=== PATIENT | female | born 1985 | race Caucasian/White ===

== ENCOUNTER 2018-10-01 19:35 | Inpatient (IN) | payer OTHER ==
[2018-10-01 20:54] LABS: PLATELET COUNT 122 10^3/uL (150-400)
[2018-10-01] MEDS ORDERED: fentaNYL 100 MCG/2 ML INJ IVP ONE (21:27)
[2018-10-01] MEDS ORDERED: PHENYLEPHRINE HCL 100 MCG/ML SYR IVP PRN (21:39)
[2018-10-01] MEDS ORDERED: NALOXONE HCL 0.4 MG/ML INJ IVP PRN (21:39)
[2018-10-01] MEDS ORDERED: BUPIVACAINE 0.5% 30 ML SDV ONE (21:44)
[2018-10-01] MEDS ORDERED: PHENYLEPHRINE HCL 100 MCG/ML SYR ONE (21:44)
[2018-10-01] MEDS ORDERED: OLIVE OIL 118 ML BTL MISC PRN (22:00)
[2018-10-01] MEDS ORDERED: fentaNYL 200 MCG, BUPIVACAINE 0.5% 20 ML in NS 100 ML EP SCH (22:00)
[2018-10-01] MEDS ORDERED: LR 1,000 ML IV PRN (22:00)
[2018-10-01] MEDS ORDERED: LIDOCAINE 1% 300 MG/30 ML SDV SC PRN (22:00)
[2018-10-01] MEDS ORDERED: IBUPROFEN 600 MG TAB PO PRN (22:00)
[2018-10-01] MEDS ORDERED: EPSOM SALT 454 GM TP PRN (22:00)
[2018-10-01] MEDS ORDERED: LR 500 ML IV SCH (22:00)
[2018-10-01] MEDS ORDERED: MISOPROSTOL 200 MCG TAB PR PRN (22:00)
[2018-10-01] MEDS ORDERED: TERBUTALINE SULFATE 1 MG/ML VIAL IV PRN (22:00)
[2018-10-01] MEDS ORDERED: OXYTOCIN/RINGERS LACTATE 1,000 ML IV PRN (22:00)
[2018-10-01] MEDS ORDERED: fentaNYL 2MCG/ML/BUP 0.1% RTU 100 ML EP SCH (22:00)
[2018-10-01] MEDS ORDERED: LIDOCAINE 1% 300 MG/30 ML SDV ONE (22:16)
[2018-10-01] MEDS ORDERED: OLIVE OIL 118 ML BTL ONE (22:16)
[2018-10-01] MEDS ORDERED: TERBUTALINE SULFATE 1 MG/ML VIAL ONE (22:17)
[2018-10-01] MEDS ORDERED: OXYTOCIN 10 UNIT/ML VIAL ONE (22:17)
[2018-10-01] MEDS ORDERED: AMMONIA AROMATIC 1 EACH AMP IH ONE (22:17)
[2018-10-01] MEDS ORDERED: MISOPROSTOL 200 MCG TAB ONE (22:17)
--- NOTE | 2018-10-01 22:48 | PREANESOB ---
Obstetric Pre-Anesthesia Info - General Info Proposed Procedure: NEIDA : 2 Para: 1 ROXANA: 10/17/18 Gestational Age: 37 week(s) and 5 day(s) - Info Status: Full Term FHR Pattern: Reassuring - Labor Status Cervical Dilation per last OB SVE: 3 Indications for Labor Analgesia: Pain Control Labor Epidural: Proposed Anesthesia Allergies/Adverse Reactions: Allergy/AdvReac Type Severity Reaction Status Date / Time No Known Allergies Allergy Unverified 10/01/18 20:45 Visit Medications: Generic Name Dose Route Start Last Admin Trade Name Freq PRN Reason Stop Dose Admin Lactated Ringer's 500 mls @ 0 mls/hr 10/01/18 22:00 Lr IV 03/30/19 21:59 CONT ROSA ISELA As Directed Fentanyl 200 mcg/ Bupivacaine 100 mls @ 0 mls/hr 10/01/18 22:00 HCl 20 ml/ Sodium Chloride EP 10/11/18 21:59 CONT ROSA ISELA Protocol As Directed Lactated Ringer's 1,000 mls @ 0 mls/hr 10/01/18 22:00 Lr IV 10/02/18 21:59 PRN PRN SEE PROTOCOL CONDITIONS Protocol Per Protocol Oxytocin/Lactated Ringer's 1,000 mls @ 125 mls/hr 10/01/18 22:00 Pitocin 20 Units/Lr (Premix) IV PRN PRN Post bleeding Ibuprofen 600 mg 10/01/18 22:00 Motrin PO ONCE PRN post , pain Lidocaine HCl 300 mg 10/01/18 22:00 Lidocaine Hcl 1% SC 03/30/19 21:59 ONCE PRN episiotomy Magnesium Sulfate 454 gm 10/01/18 22:00 Epsom Salt TP 03/30/19 21:59 Q1H PRN perineal discomfort Misoprostol 800 - 1,000 mcg 10/01/18 22:00 Cytotec NC ONCE PRN Vaginal Atony/Bleeding Naloxone HCl 0.4 mg 10/01/18 21:39 Narcan IVP 03/30/19 21:38 PRN PRN Respiratory depression [place] Oil 118 ml 10/01/18 22:00 Sweet Oil MISC 03/30/19 21:59 ONCE PRN perineal massage Phenylephrine HCl 100 mcg 10/01/18 21:39 Neosynephrine IVP 03/30/19 21:38 .Q2M PRN Hypotension Terbutaline Sulfate 0.25 mg 10/01/18 22:00 Brethine IV 03/30/19 21:59 ONCE PRN Tachysystole Discontinued Medications Generic Name Dose Route Start Last Admin Trade Name Daisy PRN Reason Stop Dose Admin Ammonia (Aromatic Spirit) Confirm 10/01/18 22:17 Ammonia Aromatic Administered 10/01/18 22:18 Dose 1 each IH .STK-MED ONE Bupivacaine HCl Confirm 10/01/18 21:44 Sensorcaine 0.5% Vial Administered 10/01/18 21:45 Dose 30 ml .ROUTE .STK-MED ONE Fentanyl 50 mcg 10/01/18 21:27 Sublimaze IVP 10/01/18 21:28 ONCE ONE Lidocaine HCl Confirm 10/01/18 22:16 Lidocaine Hcl 1% Administered 10/01/18 22:17 Dose 300 mg .ROUTE .STK-MED ONE Misoprostol Confirm 10/01/18 22:17 Cytotec Administered 10/01/18 22:18 Dose 1,000 mcg .ROUTE .STK-MED ONE [place] Oil Confirm 10/01/18 22:16 Sweet Oil Administered 10/01/18 22:17 Dose 118 ml .ROUTE .STK-MED ONE Oxytocin Confirm 10/01/18 22:17 Pitocin Administered 10/01/18 22:18 Dose 40 unit .ROUTE .STK-MED ONE Phenylephrine HCl Confirm 10/01/18 21:44 Neosynephrine Administered 10/01/18 21:45 Dose 1,000 mcg .ROUTE .STK-MED ONE Terbutaline Sulfate Confirm 10/01/18 22:17 Brethine Administered 10/01/18 22:18 Dose 1 mg .ROUTE .STK-MED ONE - Anesthesia History Response to Local Anesthetics: Normal Anesthesia & Operative History: No Prior Problems Family Anesthesia History: Negative - Social History Substance Use/Abuse: Denies - Vital Signs Height/Weight (Nursing): Height 157.48 cm Weight 81.647 kg Weight: 82 kg Height: 157.48 cm - Focused Exam Neck exam: FROM Mallampati Score: Class 1 Mouth exam: normal dental/mouth exam Pulmonary: no respiratory distress, no rales or rhonchi Cardiovascular: regular rate and rhythym, no murmur, rub, or gallop Labs: 10/01/18 20:43 10/01/18 20:43 Uric Acid 5.7 mg/dL (2.5-6.8) 10/01/18 20:43 Total Bilirubin 1.2 mg/dL (0.1-1.4) 10/01/18 20:43 Conjugated Bilirubin 0.1 mg/dL (0.0-0.5) 10/01/18 20:43 Unconjugated Bilirubin 1.1 mg/dL (0.0-1.1) 10/01/18 20:43 AST 29 IU/L (14-46) 10/01/18 20:43 ALT 29 IU/L (9-52) 10/01/18 20:43 Lactate Dehydrogenase 571 IU/L (313-618) 10/01/18 20:43 - Plan Consent Signed and on Chart: Yes Patient/Guardian Understands and Agrees to Plan: Yes Urgent/Emergent Case: Josefina stuart completed preop but documented later for safe timely pt care
--- NOTE | 2018-10-01 23:08 | PDGENHP ---
History and Physical - Chief Complaint contractions - History of Present Illness 33 at 37w5d by LMP c/w 8w2d us, presents with contractions. Ctxn started this morning and have gradually increased in intensity and frequency since this morning, became q 5 min around 1800. + bloody show. NO LOF. NO LIZAMA, no vis changes, no epigastric pain. + BLE edema. Good FM. care with [facility], c/b multiple UTIs and kidney stones. Currently on ampicillin for suppression since 28 weeks. labs all wnl, including Neg Innatal. O pos Rub Imm GBS neg multiple diff u cx pos - on amp suppression POBhx; 2005, male , , 6#15oz History Information - Allergies/Home Medication List Allergies/Adverse Reactions: No Known Allergies Allergy (Unverified 10/01/18 20:45) I have personally reviewed and updated: family history, medical history, social history, surgical history Past Medical History: frequent UTIs. nephrolithiasis - Surgical History Additional surgical history: lithotripsy - Family History Positive for: cancer (MGM breast ca), diabetes type II (1/2 bro), CAD (and colon ca at 50), stroke (MGF) - Social History Smoking Status: Never smoked Alcohol Use: None Drug Use: None Review of Systems Review of Systems: ROS: 10pt was reviewed & negative except for what was stated in HPI & below Physical Exam Physical Exam: 36.4 77 16 144/91 Labor check was done, initial BPs still elevated, but then decreased out of preeclamptic range Constitutional: no apparent distress, appears nourished Eyes: PERRL, anicteric sclera, EOMI Ears, Nose, Mouth, Throat: moist mucous membranes, hearing normal, ears appear normal Cardiovascular: regular rate and rhythym Respiratory: no respiratory distress, no rales or rhonchi, clear to auscultation Gastrointestinal: normoactive bowel sounds (fundus firm and NT when not eduar) Genitourinary: no bladder fullness, other (SVE initially 3 / 90, then changed to 3.5 / 100 ) Skin: warm, normal color Musculoskeletal: full muscle strength Neurologic: AAOx3 Psychiatric: interacting appropriately, not anxious Lab Data & Imaging Review 10/01/18 20:43 10/01/18 20:43 WBC 13.28 10^3/uL (3.80-9.50) H 12/10/18 20:43 RBC 4.00 10^6/uL (4.18-5.33) L 10/01/18 20:43 Hgb 14.0 g/dL (12.6-16.3) 10/01/18 20:43 Hct 38.7 % (38.0-47.0) 10/01/18 20:43 MCV 96.8 fL (81.5-99.8) 10/01/18 20:43 MCH 35.0 pg (27.9-34.1) H 10/01/18 20:43 MCHC 36.2 g/dL (32.4-36.7) 10/01/18 20:43 RDW 13.3 % (11.5-15.2) 10/01/18 20:43 Plt Count 122 10^3/uL (150-400) L 10/01/18 20:43 MPV 12.4 fL (8.7-11.7) H 10/01/18 20:43 Neut % (Auto) 73.8 % (39.3-74.2) 10/01/18 20:43 Lymph % (Auto) 18.2 % (15.0-45.0) 10/01/18 20:43 [place] % (Auto) 7.0 % (4.5-13.0) 10/01/18 20:43 Eos % (Auto) 0.3 % (0.6-7.6) L 10/01/18 20:43 Baso % (Auto) 0.3 % (0.3-1.7) 10/01/18 20:43 Nucleat RBC Rel Count 0.0 % (0.0-0.2) 10/01/18 20:43 Absolute Neuts (auto) 9.80 10^3/uL (1.70-6.50) H 10/01/18 20:43 Absolute Lymphs (auto) 2.42 10^3/uL (1.00-3.00) 10/01/18 20:43 Absolute Monos (auto) 0.93 10^3/uL (0.30-0.80) H 10/01/18 20:43 Absolute Eos (auto) 0.04 10^3/uL (0.03-0.40) 10/01/18 20:43 Absolute Basos (auto) 0.04 10^3/uL (0.02-0.10) 10/01/18 20:43 Absolute Nucleated RBC 0.00 10^3/uL (0-0.01) 10/01/18 20:43 Immature Gran % 0.4 % (0.0-1.1) 10/01/18 20:43 Immature Gran # 0.05 10^3/uL (0.00-0.10) 10/01/18 20:43 BUN 16 mg/dL (7-23) 10/01/18 20:43 Creatinine 0.8 mg/dL (0.6-1.0) 10/01/18 20:43 Estimated GFR > 60 10/01/18 20:43 Uric Acid 5.7 mg/dL (2.5-6.8) 10/01/18 20:43 Total Bilirubin 1.2 mg/dL (0.1-1.4) 10/01/18 20:43 Conjugated Bilirubin 0.1 mg/dL (0.0-0.5) 10/01/18 20:43 Unconjugated Bilirubin 1.1 mg/dL (0.0-1.1) 10/01/18 20:43 AST 29 IU/L (14-46) 10/01/18 20:43 ALT 29 IU/L (9-52) 10/01/18 20:43 Lactate Dehydrogenase 571 IU/L (313-618) 10/01/18 20:43 Ur Random Creatinine 25.3 mg/dL 10/01/18 20:43 U Random Total Protein 30 mg/dL (0-11) H 10/01/18 20:43 P/c= 1.18 Assessment & Plan Assessment: 33 at 37w5d in early labor Elevated BPs with elevated P/c and low plts - currently does not meet criteria for preeclampsia, but concern for it developing, but will anticipate vag delivery as is in spontaneous labor. Epidural as desired (placed). Expectant mgmt for now. Mary Abdul MD, [facility]
--- NOTE | 2018-10-02 02:33 | OBDEL ---
Info Type: Vaginal Presentation at Delivery: Vertex L&D Analgesia/Anesthesia Type: Epidural GBS+: No Intrapartum Medications: Discontinued Medications Generic Name Dose Route Start Last Admin Trade Name Daisy PRN Reason Stop Dose Admin Fentanyl 50 mcg 10/01/18 21:27 10/01/18 23:59 Sublimaze IVP 10/01/18 21:28 Not Given ONCE ONE Indications for Delivery: Spontaneous Labor Vaginal Delivery - Delivery Provider Delivery Physician/CNM: Mary Abdul - Labor and Delivery Onset of Contractions Date: 10/01/18 Onset of Contractions Time: 18:00 Onset of Contractions Type: Spontaneous Rupture of Membranes Date: 10/02/18 Rupture of Membranes Time: 01:22 Rupture of Membranes Type: Artificial Amniotic Fluid Color: Clear Dilation Complete Date: 10/02/18 Dilation Complete Time: 01:14 Placenta Delivery Date: 10/02/18 Placenta Delivery Time: 02:08 Total Hours of Labor: 8 Non-surgical Procedures: Amniotomy Laceration: 2nd Degree, Other (Specify) (bilateral periurethral and R labial) Repair: 3-0, Vicryl Vaginal Sponge Count Correct: Yes Vaginal Needle Count Correct: Yes Vaginal Sweep Performed: Yes EBL: 350 Delivery Events: None Delivery Comment: Pt arrived in early labor, and transitioned to active labor, received an epidural and progressed from 5 cm to complete dilation in about 2 hours. AROM for clear fluid was performed after she was completely dilated. Urinary catheter was discontinued. She pushed for 22 min. At 0151 delivery of vertex over intact perineum, BARRETT presentation, no nuchal cord. No signs of dystocia. Easy delivery of body, and infant delivered to maternal abdomen. Cord clamping was delayed x 1 minute then cut. Cord blood was obtained. Bilateral periurethral lacerations, right labial and small 2nd degree lacerations were identified and repaired in the standard fashion with 3.0 Vicryl. Apgars of 8 at 1 min and 9 at 5 min, female infant. Placenta then delivered spontaneously at 0208, and was examined. A succenturiate lobe was identified - appeared as if the placenta was heart shaped, but yet complete. Sponge, lap and needle counts were correct x2. Infant left with mother, both stable, with RN in attendance. - Medications Labor Augmentation/Induction Methods Used: None [place] Data ROXANA: 10/17/18 Gestational Age: 37 week(s) and 6 day(s) [place] Delivery Date: 10/02/18 Delivery Time: 01:51 ("Aixa") Sex of Infant: Female Score (1 Min): 8 Score (5 Min): 9 ICD10 Worksheet Patient Problems: Problems Problem Status Onset Spontaneous onset of labor after 37 but before 39 completed weeks gestation with delivery by planned section Acute Spontaneous onset of labor after 37 but before 39 completed weeks gestation with delivery by planned section Acute Vaginal delivery Acute Vaginal delivery Acute - ICD10 Problem Qualifiers (1) Spontaneous onset of labor after 37 but before 39 completed weeks gestation with delivery by planned section (2) Spontaneous onset of labor after 37 but before 39 completed weeks gestation with delivery by planned section (3) Vaginal delivery (4) Vaginal delivery
[2018-10-02] MEDS ORDERED: SIMETHICONE 80 MG TAB CHEW PO PRN (02:34)
[2018-10-02] MEDS ORDERED: HYDROCORTISONE 0.5% CREAM TP PRN (02:34)
[2018-10-02] MEDS: IBUPROFEN 600 MG TAB PO SCH ×3 (02:52→16:30)
[2018-10-02] MEDS: ACETAMINOPHEN 325 MG TAB PO SCH ×4 (03:26→23:37)
[2018-10-02] MEDS: DOCUSATE SODIUM 100 MG CAP PO PRN (09:10)
--- NOTE | 2018-10-02 10:31 | OBPP ---
Progress Note Assessment/Plan: Assessment: 33 y/o PPD #0 s/p doing well. Plan: Will observe BP today and check CBC tomorrow. support and routine PPC. 10/02/18 10:32 Subjective/ Course: 10/02/18 10:14 Pt is doing well this am. She has min cramping controlled with Ibuprofen and Tylenol. She has mod lochia, reagan reg diet, ambulating and voiding without difficulty. Baby is doing well and working on breast feeding. Objective: 10/01/18 20:43 10/01/18 20:43 Patient ABO/Rh O POSITIVE 10/01/18 22:50 Uric Acid 5.7 mg/dL (2.5-6.8) 10/01/18 20:43 Total Bilirubin 1.2 mg/dL (0.1-1.4) 10/01/18 20:43 Conjugated Bilirubin 0.1 mg/dL (0.0-0.5) 10/01/18 20:43 Unconjugated Bilirubin 1.1 mg/dL (0.0-1.1) 10/01/18 20:43 AST 29 IU/L (14-46) 10/01/18 20:43 ALT 29 IU/L (9-52) 10/01/18 20:43 Lactate Dehydrogenase 571 IU/L (313-618) 10/01/18 20:43 Temp Pulse Resp BP Pulse Ox 36.1 C 82 16 130/81 H 92 10/02/18 08:00 10/02/18 08:00 10/02/18 08:00 10/02/18 08:00 10/02/18 08:00 Uterine Position/Fundal Height: Umbilicus -2 Uterine Tone: Firm Physical Exam - Physical Exam General Appearance: alert, no apparent distress Neck: non-tender, full range of motion, supple Respiratory: chest non-tender, lungs clear, normal breath sounds Cardiac/Chest: regular rate, rhythm Abdomen: normal bowel sounds Extremities: swelling (tr), Dragan's sign (neg)
[2018-10-02] MEDS: oxyCODONE IR 5 MG TAB PO PRN ×2 (14:18→20:30)
[2018-10-03] MEDS: DOCUSATE SODIUM 100 MG CAP PO PRN ×3 (02:12→19:44)
[2018-10-03] MEDS: ACETAMINOPHEN 325 MG TAB PO SCH ×4 (02:13→21:36)
[2018-10-03] MEDS: IBUPROFEN 600 MG TAB PO SCH ×4 (02:13→21:35)
[2018-10-03 05:52] LABS: PLATELET COUNT 116 10^3/uL (150-400)
--- NOTE | 2018-10-03 08:57 | OBPP ---
Progress Note Assessment/Plan: Assessment: 1) s/p PPD #1 - pt is stable 2) Anemia - pt is stable Plan: Continue routine pp care Encourage ambulation Will start iron BPs this am look good, will cont to monitor Plan for d/c home in am 10/0410/03/18 09:12 Subjective/ Course: 10/02/18 10:14 Pt is doing well this am. She has min cramping controlled with Ibuprofen and Tylenol. She has mod lochia, reagan reg diet, ambulating and voiding without difficulty. Baby is doing well and working on breast feeding. 10/03/18 08:53 Pt seen and examined. Doing well with no complaints. Some painful cramping when baby girl latches on, relief with Motrin and Tylenol. Pt is reagan regular diet, voiding and passing flatus. Mod lochia. BF going well so far. Objective: 10/03/18 05:40 10/01/18 20:43 Patient ABO/Rh O POSITIVE 10/01/18 22:50 Uric Acid 5.7 mg/dL (2.5-6.8) 10/01/18 20:43 Total Bilirubin 1.2 mg/dL (0.1-1.4) 10/01/18 20:43 Conjugated Bilirubin 0.1 mg/dL (0.0-0.5) 10/01/18 20:43 Unconjugated Bilirubin 1.1 mg/dL (0.0-1.1) 10/01/18 20:43 AST 29 IU/L (14-46) 10/01/18 20:43 ALT 29 IU/L (9-52) 10/01/18 20:43 Lactate Dehydrogenase 571 IU/L (313-618) 10/01/18 20:43 Temp Pulse Resp BP Pulse Ox 36.2 C 76 16 118/71 93 10/03/18 08:00 10/03/18 08:00 10/03/18 08:00 10/03/18 08:00 10/03/18 08:00 Uterine Position/Fundal Height: Umbilicus -2 Uterine Tone: Firm Physical Exam - Physical Exam General Appearance: WD/WN, alert, no apparent distress Respiratory: lungs clear, normal breath sounds Cardiac/Chest: regular rate, rhythm Abdomen: normal bowel sounds, non-tender, soft, flatus (+) Extremities: non-tender, normal inspection Skin: normal color, warm/dry Neuro/Psych: alert, normal mood/affect, oriented x 3
[2018-10-03] MEDS ORDERED: FERROUS SULFATE 140 MG TAB.ER PO SCH (09:15)
[2018-10-03] MEDS: FERRO-SEQUELS 65 MG TAB.ER PO SCH ×2 (10:24→19:44)
--- NOTE | 2018-10-03 16:29 | POSTANESTH ---
Post Anesthetic Evaluation Cardiovascular Status: Normal, Stable Respiratory Status: Normal, Stable Level of Consciousness/Mental Status: Can Participate in Eval Pain Control: Adequate, Prn Tx Ordered Nausea/Vomiting Control: Adequate, Prn Tx Ordered Complications Possibly Related to Anesthesia: None Noted (Back dry No signs of infection)
[2018-10-03] MEDS: oxyCODONE IR 5 MG TAB PO PRN (20:54)
[2018-10-04] MEDS: IBUPROFEN 600 MG TAB PO SCH ×2 (03:54→09:49)
[2018-10-04] MEDS: ACETAMINOPHEN 325 MG TAB PO SCH ×2 (03:54→09:49)
[2018-10-04] MEDS: oxyCODONE IR 5 MG TAB PO PRN ×2 (03:57→08:05)
[2018-10-04] MEDS: FERRO-SEQUELS 65 MG TAB.ER PO SCH (08:05)
[2018-10-04] MEDS: DOCUSATE SODIUM 100 MG CAP PO PRN (08:06)
[2018-10-04 08:23] VITALS: BP 128/83
--- NOTE | 2018-10-04 13:15 | OBGCSDC ---
General Delivery Information - General Info : 2 Para: 2 Abortions: 0 Type: Vaginal L&D Analgesia/Anesthesia Type: Epidural Admission Date: 10/01/18 Labs: Patient ABO/Rh O POSITIVE 10/01/18 22:50 Hct 32.9 % (38.0-47.0) L 10/03/18 05:40 - Hospital Course : 10/02/18 10:14 Pt is doing well this am. She has min cramping controlled with Ibuprofen and Tylenol. She has mod lochia, reagan reg diet, ambulating and voiding without difficulty. Baby is doing well and working on breast feeding. 10/03/18 08:53 Pt seen and examined. Doing well with no complaints. Some painful cramping when baby girl latches on, relief with Motrin and Tylenol. Pt is reagan regular diet, voiding and passing flatus. Mod lochia. BF going well so far. 10/04/18 13:13 Pt doing great. BF well. using oxy for pelvic pain sparingly. using ibu/tyl. bld is light. urinating fine. ready for d/c Vaginal - Delivery Provider Delivery Physician/CNM: Mary Abdul - Diagnosis Labor: Spontaneous Rupture of Membranes Type: Artificial Amniotic Fluid Color: Clear Laceration: 2nd Degree, Other (Specify) (bilateral periurethral and R labial) Repair: 3-0, Vicryl Delivery Events: None - Procedures Non-surgical Procedures: Amniotomy - Delivery Non-surgical Procedures: Amniotomy EBL: 350 [place] Data ROXANA: 10/17/18 Gestational Age: 38 week(s) and 1 day(s) [place] Delivery Date: 10/02/18 Delivery Time: 01:51 Sex of Infant: Female Weight (gm): 2994 g Score (1 Min): 8 Score (5 Min): 9 Discharge Information - Discharge Information Prescriptions: oxyCODONE IR [Oxycodone Ir (*)] 5 mg PO Q4 PRN #10 tab PRN Reason: Pain, Severe Able To Take Po Condition: Good Instruction/Follow Up: See Instruction Sheet, Four Weeks (3-4 wks with therapist ), Six Weeks (with Chantell)
--- NOTE | 2018-10-04 13:15 | OBPP ---
Progress Note Assessment/Plan: Assessment: PPD 2 s/p anemia Plan: d/c home, iron daily 10/04/18 13:12 Subjective/ Course: 10/02/18 10:14 Pt is doing well this am. She has min cramping controlled with Ibuprofen and Tylenol. She has mod lochia, reagan reg diet, ambulating and voiding without difficulty. Baby is doing well and working on breast feeding. 10/03/18 08:53 Pt seen and examined. Doing well with no complaints. Some painful cramping when baby girl latches on, relief with Motrin and Tylenol. Pt is reagan regular diet, voiding and passing flatus. Mod lochia. BF going well so far. 10/04/18 13:13 Pt doing great. BF well. using oxy for pelvic pain sparingly. using ibu/tyl. bld is light. urinating fine. ready for d/c Objective: 10/03/18 05:40 10/01/18 20:43 Patient ABO/Rh O POSITIVE 10/01/18 22:50 Uric Acid 5.7 mg/dL (2.5-6.8) 10/01/18 20:43 Total Bilirubin 1.2 mg/dL (0.1-1.4) 10/01/18 20:43 Conjugated Bilirubin 0.1 mg/dL (0.0-0.5) 10/01/18 20:43 Unconjugated Bilirubin 1.1 mg/dL (0.0-1.1) 10/01/18 20:43 AST 29 IU/L (14-46) 10/01/18 20:43 ALT 29 IU/L (9-52) 10/01/18 20:43 Lactate Dehydrogenase 571 IU/L (313-618) 10/01/18 20:43 Temp Pulse Resp BP Pulse Ox 36.2 C 79 14 128/83 H 95 10/04/18 08:00 10/04/18 08:00 10/04/18 08:00 10/04/18 08:00 10/04/18 08:00 Uterine Position/Fundal Height: Umbilicus -2 Uterine Tone: Firm Physical Exam - Physical Exam Abdomen: non-tender, soft, other (normal lochia) Extremities: normal range of motion, non-tender, pedal edema (minimal) Skin: normal color, warm/dry Neuro/Psych: alert, normal mood/affect
== END 2018-10-04 13:45 | disposition home or self-care (01) | DRG 807 ==
LOC: FLD 19:35 → FOB 10-02 03:52
PROVIDERS: ADMIT Hospitalist; ATTEND Hospitalist
DX: O70.1 Second degree perineal laceration during delivery (principal); Z37.0 Single live birth; Z3A.37 37 weeks gestation of pregnancy
CPT/HCPCS: J2370; J2590; J3010; J3105